=== PATIENT | male | born 1960 | race Caucasian/White ===

== ENCOUNTER 2018-01-20 07:52 | Observation (INO) | payer OTHER ==
[~2018-01-20 07:52] MED LIST: POVIDONE-IODINE 20 ML in SODIUM CL IRRIG SOLUTION 500 ML IRR ONE; ROPIVACAINE 0.2% 80 MG, EPINEPHrine 0.2 MG, KETOROLAC TROMETHAMINE 30 MG in SYRINGE 0 ML IU ONE; TRANEXAMIC ACID 1,000 MG in NS 100 ML IV ONE; TRANEXAMIC ACID 3,000 MG in NS (SYRINGE) 50 ML IRR ONE
[2018-01-20] MEDS ORDERED: GABAPENTIN 300 MG CAP PO ONE (07:58)
[2018-01-20] MEDS ORDERED: FAMOTIDINE 20 MG TAB PO ONE (07:58)
[2018-01-20] MEDS ORDERED: ACETAMINOPHEN 325 MG TAB PO ONE (07:58)
[2018-01-20] MEDS ORDERED: ONDANSETRON 4 MG/2 ML VIAL IVP ONE (07:58)
[2018-01-20] MEDS ORDERED: ceFAZolin 2 GM/DEXTROSE 100 ML IV ONE (07:58)
[2018-01-20] MEDS ORDERED: DEXAMETHASONE 4 MG/ML VIAL IVP ONE (07:58)
[2018-01-20] MEDS ORDERED: LIDOCAINE 1% 2 ML INJ ID PRN (08:05)
[2018-01-20] MEDS ORDERED: LR 1,000 ML IV ONE (08:05)
[2018-01-20] MEDS ORDERED: ceFAZolin 1 GM/5 ML SYR ONE (08:55)
--- NOTE | 2018-01-20 09:41 | PDHPUP ---
History & Physical Update H&P update statement: This history and physical update is based on an assessment of the patient which was completed after admission or registration (within 24 hours), but prior to the surgery/procedure. H&P update: H&P reviewed & patient examined
[2018-01-20] MEDS ORDERED: MIDAZOLAM 2 MG/2 ML VIAL ONE (10:03)
[2018-01-20] MEDS ORDERED: MIDAZOLAM 2 MG/2 ML VIAL IVP ONE (10:06)
--- NOTE | 2018-01-20 10:06 | PDANEPAE ---
ANE History of Present Illness 57 yo for hip resurfacing ANE Past Medical History - Cardiovascular History Hx Hypertension: No Hx Arrhythmias: No Hx Chest Pain: No Hx Coronary Artery / Peripheral Vascular Disease: No Hx CHF / Valvular Disease: No Hx Palpitations: No - Pulmonary History Hx COPD: No Hx Asthma/Reactive Airway Disease: No Hx Recent Upper Respiratory Infection: No Hx Oxygen in Use at Home: No Hx Sleep Apnea: No Sleep Apnea Screening Result - Last Documented: Negative - Neurologic History Hx Cerebrovascular Accident: No Hx Seizures: No Hx Dementia: No - Endocrine History Hx Diabetes: No - Renal History Hx Renal Disorders: No - Liver History Hx Hepatic Disorders: No - Neurological & Psychiatric Hx Hx Neurological and Psychiatric Disorders: No - Cancer History Hx Cancer: No - Congenital Disorder History Hx Congenital Disorders: No - GI History Hx Gastrointestinal Disorders: No - Other Health History Other Health History: OSTEOARTHRITIS - Chronic Pain History Chronic Pain: Yes (LT HIP) - Surgical History Prior Surgeries: SEPTOPLASTY. VASECTOMY. LT ING HERNIA. COLONOSCOPY ANE Review of Systems Review of Systems: - Exercise capacity METS (RN): 4 METS ANE Patient History - Allergies Allergies/Adverse Reactions: No Known Allergies Allergy (Unverified 01/13/18 10:08) - Home Medications Home medications: home medication list seen and reviewed Home Medications: Diclofenac Sodium HS 01/13/18 [Last Taken 01/13/18] Herbals/Supplements -Info Only DAILY 01/13/18 [Last Taken 01/13/18] Ibuprofen DAILY 01/13/18 [Last Taken 01/13/18] Psyllium Husk HS 01/13/18 [Last Taken 01/19/18 19:30] ZOLPIDEM TARTRATE HS 01/13/18 [Last Taken 01/19/18 19:30] - NPO status NPO Since - Liquids (Date): 01/20/18 NPO Since - Liquids (Time): 06:30 NPO Since - Solids (Date): 01/19/18 NPO Since - Solids (Time): 23:00 - Anes Hx Anes Hx: no prior problems - Smoking Hx Smoking Status: Former smoker ANE Labs/Vital Signs - Vital Signs Blood Pressure: 132/92 Heart Rate: 62 Respiratory Rate: 16 O2 Sat (%): 96 Height: 5 ft 11 in Weight: 95.254 kg ANE Physical Exam - Airway Mallampati Score: Class 2 Mouth exam: normal dental/mouth exam - Pulmonary Pulmonary: no respiratory distress - Cardiovascular Cardiovascular: regular rate and rhythym - ASA Status ASA Status: I ANE Anesthesia Plan Anesthesia Plan: spinal
[2018-01-20] MEDS ORDERED: PROPOFOL/EMULSION 500 MG/50 ML BOTTLE IV ONE ×2 (10:18→11:00)
[2018-01-20] MEDS ORDERED: HYDROCODONE/APAP 5/325 TAB PO PRN (11:52)
[2018-01-20] MEDS ORDERED: HYDROmorphONE/DILAUDID 2 MG/ML INJ IVP PRN (11:52)
[2018-01-20] MEDS ORDERED: NALOXONE HCL 0.4 MG/ML INJ IVP PRN (11:52)
[2018-01-20] MEDS ORDERED: ONDANSETRON 4 MG/2 ML VIAL IVP PRN ×2 (11:52→12:11)
[2018-01-20] MEDS ORDERED: fentaNYL 100 MCG/2 ML INJ IVP PRN (11:52)
--- NOTE | 2018-01-20 11:54 | POSTOPPROG ---
Post Op Note Date of Operation: 01/20/18 Surgeon: Bassem Pollard Adobe Maker: Bunny Anesthesiologist: Dr. Ayala Anesthesia: IV Sedation, Spinal Post-op Diagnosis: Left hip severe degenerative arthritis Procedure: Left hip Leny hip resurfacing arthroplasty Inf/Abcess present in the surg proc area at time of surgery?: No EBL: 100-500
[2018-01-20] MEDS ORDERED: POLYETHYLENE GLYCOL 3350 17 GM PKT PO PRN (12:11)
[2018-01-20] MEDS ORDERED: CYCLOBENZAPRINE 10 MG TAB PO PRN (12:11)
[2018-01-20] MEDS ORDERED: traMADol 50 MG TAB PO PRN (12:11)
[2018-01-20] MEDS ORDERED: TEMAZEPAM 15 MG CAP PO PRN (12:11)
[2018-01-20] MEDS ORDERED: diphenhydrAMINE 25 MG CAP PO PRN (12:11)
[2018-01-20] MEDS ORDERED: PROMETHAZINE HCL 25 MG SUPPR PR PRN (12:11)
[2018-01-20] MEDS ORDERED: oxyCODONE IR 5 MG TAB PO PRN (12:11)
[2018-01-20] MEDS ORDERED: BISACODYL 10 MG SUPP PR PRN (12:11)
[2018-01-20] MEDS ORDERED: NS 500 ML IV PRN (12:11)
[2018-01-20] MEDS ORDERED: METOCLOPRAMIDE 10 MG/2 ML VIAL IVP PRN (12:11)
[2018-01-20] MEDS ORDERED: PROMETHAZINE HCL 25 MG/ML INJ IVP PRN (12:11)
[2018-01-20] MEDS ORDERED: LACTULOSE 20 GM/30 ML UDCUP PO PRN (12:11)
[2018-01-20] MEDS ORDERED: ONDANSETRON DISINTEGRATING 4 MG TAB PO PRN (12:11)
[2018-01-20] MEDS ORDERED: MAGNESIUM HYDROXIDE 30 ML UDCUP PO PRN (12:11)
[2018-01-20] MEDS ORDERED: DIPHENOXYLATE/ATROPINE LOMOTIL 1 TAB PO PRN (12:11)
[2018-01-20] MEDS ORDERED: LR 1,000 ML IV SCH (12:30)
--- NOTE | 2018-01-20 13:06 | GOP ---
DATE OF OPERATION: 01/20/2018 SURGEON: Bassem Pollard MD TRY ON BASTER: Mark Modi TRANSITION ASSISTANT and Castro Quiñones PAC. ANESTHESIA: A combination of Marcaine spinal and IV sedation. ANESTHESIOLOGIST: Dr. Ayala. PREOPERATIVE DIAGNOSIS: Left hip severe degenerative arthritis. POSTOPERATIVE DIAGNOSIS: Left hip severe degenerative arthritis. PROCEDURE PERFORMED: Left hip Point Roberts hip resurfacing arthroplasty. FINDINGS: DESCRIPTION OF PROCEDURE: The patient was given 2 g of IV Ancef preoperatively within 60 minutes of surgery. He also received 1000 mg of IV tranexamic acid. He was placed on the operating room table and given spinal anesthesia with Marcaine by Dr. Ayala. He was then placed supine and given IV se dation. A Joshi catheter was not used. He wore a CHITO stocking and SCD on the nonoperative leg. He was rolled to the right lateral decubitus position. An axillary roll was used, and all pressure poin ts were padded. The position was secured with the pegboard table attachment. I was careful to lock his pelvis in a vertical position. His perineum was isolated with plastic adhesive drapes. His left hip and left lower extremity were prepped with ChloraPrep. They were draped free using sterile shee ts, stockinette, and Ioban plastic adhesive drape. The [employer] time-out was performed to verify the correct patient identity and the c orrect surgical side and site. The Farrell time-out was also performed. I made a 7-inch straight oblique posterolateral hip skin incision. The subcutaneous tissues were sha rply divided, and hemostasis was obtained using electrocautery. The fascia meredith was identified and s plit along the axis of its fibers. I curved posteriorly and proximally, and split the fascia of glut eus jazmine and bluntly split the muscle fibers in line with their orientation. His sciatic nerve wa s identified and protected throughout the procedure. The Charnley self-retaining retractor was inser chito. The external rotators and the posterior capsule were divided as separate layers at the base of the femoral neck, tagged, and reflected posteriorly. The gluteus jazmine tendon was divided and tagg ed in order to improve exposure and release tension on the sciatic nerve. His hip was dislocated pos teriorly. I used a sizing gauge to check the diameter of the neck and concluded that 52 mm was the p aura head size. I performed a circumferential capsulotomy. I was able to retract the femoral head anteriorly and superiorly, and hold it out of place with appropriate retractors. The remnant of his badly damaged labrum was excised. His acetabulum was reamed sequentially up to 58 mm. I selected gabriel Michele monoblock porous-coated acetabular component with an outside diameter of 58 mm. This wa s firmly impacted and was a very tight fit. I was careful to determine proper inclination and anteve rsion. I used the transverse acetabular ligament and other bony acetabular landmarks to help me dete rmine proper cup orientation. Large anterior, anterior inferior and posterior inferior osteophytes w ere removed with an osteotome and rongeur. I was careful to leave a good lip of bone and capsule ext ending beyond the anterior-inferior lip of the metal cup. I then returned to preparation of the femoral head. Using appropriate jigs and guides, I inserted a guide pin into the femoral head and neck. I was careful to position in such a way that there would b e no notching of the neck. I attempted to reestablish the anterior head-neck offset. A large steril e goniometer was used to check the neck shaft angle. I reamed over the guide pin and inserted the re aming guide. I then used the cylindrical reamer down to the head-neck junction. This was followed b y the flat reamer and the chamfer reamer. The head was sized for 52 mm. There was no impingement or damage to the neck. He had excellent quality bone in his femoral head. He had some modest-sized an terior neck osteophytes, which I trimmed with a rongeur. I drilled a small hole in the lesser trocha nter and inserted a suction cannula to create negative pressure in the medullary canal. Small holes were drilled on the flattened and chamfered surfaces of the prepared head for cement anchors. The he ad was thoroughly cleaned with the pulsating lavage and thoroughly dried. I used a CarboJet device t o blow dry the cancellous surfaces. A single batch of Simplex cement with tobramycin was mixed. At about 50 seconds, I poured the liquid cement into the head component, inserted it into the prepared f emoral head and impacted it into place. Excess cement was removed before it hardened. The acetabulum was irrigated, cleaned, and inspected, and the hip was reduced. Stability and range o f motion were checked. I placed my finger along the anterior aspect of the acetabular component and flexed the hip to 110 degrees. There was no anterior impingement. The suction cannula in the lesser trochanter was removed. The wound was thoroughly irrigated with a dilute Betadine solution. 40 mL of the joint anesthetic cocktail were injected into the capsule, the deep musculature, and the subcut aneous tissues along the skin edges. I then instilled 50 cc of tranexamic acid solution into the joint. It was left there for 2 or 3 radha sony. His sciatic nerve was reinspected and looked unharmed. The external rotators and the posterior capsu le were repaired in separate layers with #2 FiberWire sutures through drill holes in the greater troc hanter. This provided a strong posterior capsular and external rotator repair. The gluteus jazmine tendon was repaired with two #2 [id number] FiberWire sutures. The fascia meredith was repaired firs t with 2 interrupted [id number] #2 FiberWire sutures followed by a running #2 barbed Ethicon Str atafix PDO suture. Subcutaneous tissues were closed with a running 0 barbed Ethicon Stratafix Monode rm suture. The skin was closed with a running 3-0 barbed Ethicon Stratafix Monoderm subcuticular sut ure. The skin edges were reapproximated and sealed with Dermabond glue. The wound was covered with a large sterile Mepilex waterproof dressing. The sacral Mediplex dressing was also applied. The estimated blood loss was about 400 cc. I used a Lopez and Nephew Point Roberts hip resurfacing system. The acetabular component was 58 mm in d iameter and press-fit. The femoral head was 52 mm and cemented. He was awakened from anesthesia and rolled to the supine position on his [facility]. A long-leg compressive stocking and SCD were applied to the operative leg. He wore a stocking and SCD on the opposite leg during the procedure. A pillow was placed between his knees. He was taken to PACU in satisfactory condition. There were n o recognized intraoperative complications. The sponge and needle count were correct on 2 occasions. Mark Modi and Castro Quiñones acted as surgical assistants. Their assistance was a medical necess ity for safe completion of the procedure. Copy requested to: MD Costa Hansen [place] /[id number]/MODL
--- NOTE | 2018-01-20 15:43 | ASMTCMCOM ---
CM Note CM Note Notes: 57yr old male admitted for Severe degenerative arthritis L hip. Had a L YIN. Lives with his . PT recommends home with 24hr supervision and out-pt therapy. OT= HC. Patient has discharge orders. Date Signed: 01/20/2018 03:42 PM Electronically Signed By:Elsy Chacon LCSW
--- NOTE | 2018-01-20 15:48 | ASDISCHSUM ---
Discharge Information Plan Status:Home with No Needs Medically Cleared to Leave:01/20/2018 Discharge Date:01/20/2018 CM D/C Disposition:Home, Routine, Self-Care ADT D/C Disposition: Projected Discharge Date:01/20/2018 04:00 PM Transportation at D/C:Family Discharge Delay Reason: Follow-Up Date:01/20/2018 04:00 PM Discharge Slot:2 - 12:01 pm - 18:00 pm Final Diagnosis:Severe degenerative arthritis L hip Placement Information Patient Contact Information Contact Name:KAYLIN Relationship: Address:[address] [place] [address] Work Phone: City:[place] Phone: State/Zip Code:[place] [address] Email: Financial Information Financial Class:HMO and PPO Plans Primary Plan Desc:Nolio CHRIS MENDEZ Primary Plan Number:[id number] Secondary Plan Desc: Secondary Plan Number: Assessment Information [facility] CM Progress Note CM Note CM Note Notes: 57yr old male admitted for Severe degenerative arthritis L hip. Had a L YIN. Lives with his . PT recommends home with 24hr supervision and out-pt therapy. OT= HC. Patient has discharge orders. Date Signed: 01/20/2018 03:42 PM Electronically Signed By:Elsy Chacon LCSW LACE LACE Length of stay for Answers: Less than 1 day current admission Acuity / Level of Answers: No Care: Did the patient have an inpatient admission? Comorbidities - select Answers: Other Notes: Arthritis all that apply # of Emergency department Answers: 0 visits in the last 6 months Score: 1 Date Signed: 01/20/2018 03:45 PM Electronically Signed By:Elsy Chacon LCSW Case Management Discharge Plan Note Case Management Discharge Discharge Order Complete? Answers: Yes Patient to Obtain Answers: via Family Medications Transportation Arranged Answers: Family/Friends Transport will Pick (Date 01/20/2018 04:00 PM & Time) Family Notified Answers: Yes Notes: Family to transport Discharge Comments Notes: Patient has been discharged home with . PT recommending out-pt therapy. OT-HC. Date Signed: 01/20/2018 03:47 PM Electronically Signed By:Elsy Chacon LCSW Intervention Information
[2018-01-20 15:51] VITALS: BP 131/85
[2018-01-20] MEDS ORDERED: ACETAMINOPHEN 325 MG TAB PO SCH (18:00)
[2018-01-20] MEDS ORDERED: KETOROLAC 15 MG/1 ML SDV IVP SCH (18:00)
[2018-01-20] MEDS ORDERED: ceFAZolin 2 GM/DEXTROSE 100 ML IV SCH (18:30)
[2018-01-20] MEDS ORDERED: FAMOTIDINE 20 MG TAB PO SCH (21:00)
[2018-01-20] MEDS ORDERED: ASPIRIN 325 MG TAB PO SCH (21:00)
[2018-01-20] MEDS ORDERED: SENNOSIDES/DOCUSATE SODIUM TAB PO SCH (21:00)
--- NOTE | 2018-01-21 07:14 | GDS ---
ADMISSION DIAGNOSIS: Left hip, severe degenerative arthritis. DISCHARGE DIAGNOSIS: Left hip, severe degenerative arthritis. OPERATIONS PERFORMED: 11/20/2017, a left hip Leny hip resurfacing arthroplasty. POSTOPERATIVE COMPLICATIONS: None. DISCHARGE CONDITION: Improved. DESCRIPTION OF HOSPITAL COURSE: The patient was admitted to the hospital on the day of surgery for o bservation status. His preoperative CBC was normal. The same day, under a combination of Marcaine, spinal, and IV sedation, he underwent a left hip Spangler hip resurfacing arthroplasty. Postoperat ively, there were no complications. He went to the floor and had formal Physical Therapy. He was di scharged the same day. DISCHARGE INSTRUCTIONS: The patient will remain on aspirin 325 mg daily for 21 days. He has prescri ptions for oxycodone and tramadol and Celebrex. Use CHITO stockings for 1 week. Use an abduction pill ow in bed for 3 weeks. I will see him back in the office in 3 weeks. If there are any problems, he is to call me at the office. Copy requested to: Dr. Albert Sanchez /[id number]/MODL
[2018-01-21] MEDS ORDERED: FERROUS SULFATE 140 MG TAB.ER PO SCH (09:00)
--- NOTE | 2018-01-22 10:51 | POSTANESTH ---
Post Anesthetic Evaluation Cardiovascular Status: Normal, Stable Respiratory Status: Normal, Stable Level of Consciousness/Mental Status: Can Participate in Eval Pain Control: Adequate, Prn Tx Ordered Nausea/Vomiting Control: Adequate, Prn Tx Ordered Complications Possibly Related to Anesthesia: None Noted
== END 2018-01-20 18:37 | disposition home or self-care (01) ==
LOC: FSGY 07:52 → F3N 12:11
PROVIDERS: ADMIT Physician Assistant; ATTEND Orthopaedic Surgery
PROC: 0SRB0JZ Replacement of Left Hip Joint with Synthetic Substitute, Open Approach (ICD-10-PCS; principal; 2018-01-20 09:30)
DX: M16.12 Unilateral primary osteoarthritis, left hip (principal); Z87.891 Personal history of nicotine dependence
CPT/HCPCS: 27130; 72170; 97116; 97161; 97166; 97535; G0378; C1713; J0171; J0690; J1100; J1885; J2250; J2405; J2704; J2795